=== PATIENT | male | born 1970 | race Caucasian/White ===

== ENCOUNTER 2016-10-02 18:17 | Emergency (ER) | payer MEDICARE, MEDICAID ==
[2016-10-02 18:21] VITALS: BP 112/74; PULSE 81; RESP 16; O2SAT 98
--- NOTE | 2016-10-02 19:05 | DRSVH ---
PROCEDURE: X-RAY LEFT HAND, MINIMUM THREE VIEWS ([id number]) INDICATIONS: swollen hand TECHNIQUE: 3 views of the hand(s) acquired. COMPARISON: None. FINDINGS: Bones: No fractures or dislocations. Carpal bones are normally aligned. No suspicious bony lesions . Soft tissues: No suspicious soft tissue calcifications. No radiopaque foreign bodies are seen. No a ir in the soft tissue is identified. IMPRESSION: No bony abnormality is seen in this patient with diffuse swelling of the hand. Cause of s welling is not apparent. Dictated by: Kip Li M.D. on 10/02/2016 at 19:02 Approved by: Kip Li M.D. on 10/02/2016 at 19:03
--- NOTE | 2016-10-02 20:10 | ED.REPORT ---
HPI-Extremity Problem Upper Date of Service Oct 02, 2016 ED Provider: Shaan Sultana MD A 45 year old male with a history of down syndrome presents to the ED complaining of left hand swelling onset unknown. Patient's caregiver noticed swelling earlier this evening. 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 He denies any injury. Patient denies any other medical complaints at this time. Nursing Notes Stated Complaint: SWOLLEN LEFT HAND Chief Complaint: Extremity Trauma Nursing Notes Reviewed: Yes Allergies: Uncoded Allergies: BEES (Allergy, 07/29/12) Scheduled PRN diphenhydrAMINE HCl (Benadryl) 25 Mg Capsule 25 MG PO Q4 PRN PRN For Itching General Time Seen by MD: 20:06 Chief Complaint Other (Left hand swelling ) Hx Obtained From: Patient, Digital Strategist Senior Manager Arrived By: Walk-in Onset Occurred: Onset unknown Symptom Duration: Since onset Location: : Wrist left Quality: Aching Severity: Current: Mild Severity: Maximum: Mild Pertinent Negative: Pt denies other symptoms Recent Healthcare: No recent doctor visit, No recent hospitalization Past Medical History Past Medical History Down Syndrome Sleep apnea Past Surgical History None reported. Smoking History Unknown if Ever Smoker Social History Other Social History: Good social support, Local resident Ambulatory Status Independent Review of Systems Constitutional: Denies: Chills, Fever Skin: Reports Swelling (Left hand ) Neurologic: Denies: Change LOC Complete sys rev & neg: except as marked. Respiratory: Denies: Shortness of breath Cardiovascular: Denies: Chest pain GI: Denies: Abdominal pain, Nausea, Vomiting Physical Exam Initial Vital Signs Vital Signs (First) Date Time Temp Pulse Resp B/P Pulse Ox O2 Delivery O2 Flow Rate FiO2 10/02/16 18:21 36.6 81 16 112/74 98 Room Air Initial VS: Reviewed Head / Eyes: Atraumatic, Normocephalic, PERRL Neck: Supple, Non-tender, Full range of motion Skin: Warm, Dry, No cyanosis General/Constitutional: Awake, Alert Respiratory / Chest: Atraumatic, Breath sounds NL, Breath sounds = bilat, No respiratory distress Cardiovascular: Heart rate NL, Regular rhythm, Heart sounds NL Upper Extremity / MS: Atraumatic, Inspection NL, Neurologic intact, Vascular intact Wrist / Hand: Atraumatic Left Hand: Positive: Swelling present... (Diffuse swelling ) WRIST/HAND: Diffuse inflammation to the left hand No evidence of cellulitis No discharge No puncture wounds No ulcers, leisons, or lacerations Abdomen: Atraumatic, Soft Lower Extremity / Pelvis / MS: Atraumatic, Inspection NL, Neurologic intact, Vascular intact Interpretation & Diagnostics X-Ray Interpretation Xray Interpretation: IMPRESSION: No bony abnormality is seen in this patient with diffuse swelling of the hand. Cause of swelling is not apparent. Dictated by: Kip Li M.D. on 10/02/2016 at 19:02 X-Ray Ordered: Hand left Re-Eval/Medical Decision Med Decision/Clinical Course 45-year-old male with Down syndrome presenting with left hand swelling 1 day. X-ray no fracture. It does not appear infected at this time. Appears inflamed likely allergic reaction. We will prescribe Benadryl as needed. Return precautions given regarding signs and symptoms of anaphylaxis or any sign symptoms infection as counseled. Re-Evaluation/Progress : Time of Eval: 20:16 Patient Status: Condition improved Re-Evaluation/Progress Note: Patient is rechecked. He is informed of his diagnosis and he agrees with plan to discharge. Counseled Regarding: Diagnosis, Need for follow-up, When/why to return to ED Discharge & Departure Impression: Primary Impression: Allergic reaction Encounter type: initial encounter Qualified Code: T78.40XA - Allergy, unspecified, initial encounter Disposition: Home Discharge Condition All VS Reviewed: Yes Condition: Stable Patient Instructions: Allergies (ED) Additional Instructions: Thank you for trusting us with your care this evening. Your exam is reassuring that your symptoms are likely due to an allergic reaction. Schedule a follow up appointment with your primary care physician in the next 2- 3 days for a recheck. Please take Benadryl as prescribed Please return to the emergency department for any new or worsening conditions including any difficulty breathing, throat swelling, nausea, vomiting, fever, increased redness or swelling in the hand. Referrals: Sandra Payne PA-C (PCP) Scribe Attestation Portions of this note were transcribed by Armida Lucero. I, Dr. Sultana personally performed the history, physical exam and medical decision-making; I reviewed and confirmed the accuracy of the information in the transcribed note. Signed by: Susan Velasco, 10/02/16 2100. copies to: Sandra Payne PA-C, Ben M MD Oct 02, 2016 20:09 ARMIDA LUCERO Oct 02, 2016 20:19
[2016-10-02] MEDS ORDERED: DIPH25CA6 PO (20:17)
[2016-10-02] MEDS ORDERED: diphenhydrAMINE 25 mg Capsule PO ONE (20:20)
== END 2016-10-02 20:28 | disposition home or self-care (01) ==
LOC: SED 18:17
DX: T63.441A Toxic effect of venom of bees, accidental (unintentional), initial encounter (principal); W57.XXXA Bitten or stung by nonvenomous insect and other nonvenomous arthropods, initial encounter; Y93.9 Activity, unspecified; Y99.8 Other external cause status; Y92.009 Unspecified place in unspecified non-institutional (private) residence as the place of occurrence of the external cause; Q90.9 Down syndrome, unspecified; G47.33 Obstructive sleep apnea (adult) (pediatric); Z91.030 Bee allergy status